=== PATIENT | female | born 1985 | race Caucasian/White ===

== ENCOUNTER → 2018-10-08 16:45 | Outpatient (CLI) | payer OTHER, SELFPAY ==
[2016-06-28 07:12] VITALS: BMI 26.6
[2018-10-17 22:39] LABS: HPV HC, High Risk Negative (Negative)
[2018-10-17 22:40] LABS: HPV Reflexed? YES, CHARGE PATIENT
== END ==
PROVIDERS: Visit Provider Obstetrics & Gynecology
DX: Z12.4 Encounter for screening for malignant neoplasm of cervix (principal)
CPT/HCPCS: 87624; 88175; G0145

== ENCOUNTER → 2018-12-09 09:16 | Outpatient (CLI) | payer OTHER, SELFPAY ==
[2018-12-09 09:12] VITALS: BMI 26.6
--- NOTE | 2018-12-09 09:18 | RAD_ITS ---
STUDY: X-RAY - PELVIS AND LEFT HIP REASON FOR EXAM: Left hip pain, no specific injury. TECHNIQUE: 2 views of the pelvis and hip. COMPARISON: None. FINDINGS: Normal visualized soft tissue structures. Normal bilateral iliac wings, sacroiliac joints and visualized sacrum. Normal bilateral superior and inferior pubic rami. Normal pubic symphysis. Normal bilateral ischial tuberosities. Normal visualized femoral head. Normal acetabulum. Normal hip joint. RAD/HIP, UNI W/ Pelvis 2-3 Views IMPRESSION: Normal x-ray examination of the pelvis and left hip. Electronically Signed: Jorge Fuentes MD at 15:14 EDT Tel , Service support ,
== END ==
PROVIDERS: Referring Provider Orthopaedic Surgery; Visit Provider Orthopaedic Surgery
DX: M25.552 Pain in left hip (principal)
CPT/HCPCS: 73502

== ENCOUNTER → 2018-12-09 09:18 | Outpatient (CLI) | payer OTHER, SELFPAY ==
[2018-12-09 09:12] VITALS: BMI 26.6
--- NOTE | 2018-12-09 09:20 | RAD_ITS ---
STUDY: X-RAY - LUMBAR SPINE REASON FOR EXAM: Female, 33 years old. Chronic low back pain. TECHNIQUE: 3 view(s) of the lumbar spine were obtained. COMPARISON: None FINDINGS: Normal lumbar lordosis. There is no substantial scoliosis. There is 7 mm of anterolisthesis of L5 on S1 from facet degeneration. There is a limbus vertebra of L2, a normal variant. Normal disc space heights. The soft tissue structures are unremarkable. RAD/Lumbar Spine 2 or 3 Views IMPRESSION: Anterolisthesis of L5 on S1 with no other significant finding. Electronically Signed: Zeferino Harrison MD at 17:37 EDT , Service support ,
== END ==
PROVIDERS: Referring Provider Orthopaedic Surgery; Visit Provider Orthopaedic Surgery
DX: M54.5 Low back pain (principal); G89.29 Other chronic pain
CPT/HCPCS: 72100; 72110; 73502

== ENCOUNTER → 2018-12-09 09:56 | Outpatient (CLI) | payer OTHER, SELFPAY ==
[2018-12-09 09:12] VITALS: BMI 26.6
--- NOTE | 2018-12-09 09:57 | RAD_ITS ---
STUDY: X-RAY - LUMBAR SPINE REASON FOR EXAM: Female, 33 years old. Low back pain. TECHNIQUE: 4 view(s) of the lumbar spine including lateral flexion and extension views were obtained. COMPARISON: None FINDINGS: Normal lumbar lordosis. There is no substantial scoliosis. There is 7 mm of anterolisthesis of L5 on S1 which slightly reduces on extension. There is no abnormal motion. There is a lumbar spine vertebra of L2, a normal variant. Normal disc space heights. The soft tissue structures are unremarkable. RAD/L/S Spine Min 4 Views IMPRESSION: 7 mm of anterolisthesis of L5 on S1 which reduces slightly on extension. No abnormal motion. No other malady. Electronically Signed: Zeferino Harrison MD at 18:00 EDT , Service support ,
== END ==
PROVIDERS: Referring Provider Orthopaedic Surgery; Visit Provider Orthopaedic Surgery
DX: M54.5 Low back pain (principal)
CPT/HCPCS: 72110

== ENCOUNTER 2019-01-20 09:00 | Outpatient (RCR) | payer OTHER, SELFPAY ==
[2018-12-09 09:12] VITALS: BMI 26.6
--- NOTE | 2018-12-17 15:53 | HP.PTEVAL ---
Patient's Visit Information BRAXTON OKEEFE is a 33 year old F referred to Physical Therapy by Tamela Tsang DO with a diagnosis of L hip KINGS/Labral tear/ L LE Radiculopathy and spondyloliteses. Date of Evaluation: 12/16/18 Physical Therapist: KINJAL Burden - Visit Plan Frequency: 1-2x /Week Duration: 6 Weeks Plan: 2X/ week for 6 weeks for Core stability, stretching (HS, gastroc, hip flexor), hip strengthening (especially L hip abd, flex and ext),. Kaylyn small sb to the L.... - Subjective Findings: Pt reports that her back started last year and pain down the leg and into groin and hip started to hurt in JUN. Periods of rest did not make it better. The up and down on the bike would hurt her hip. Running would hurt for the last year. L hip hurts into the groin and to stand and piviot and to take a long stride would hurt joanne with running. If aggrevated it would hurt all day. SHe is thinking most things come from my back except the hip. X-ray shpwed spondylolithesis and not terrible. SHe was having different days when her hip would go numb. She has an EMG next week. She has a syrinx in her back and she wants to get that in the MRI to see what part of the spine and hip it was in. She has no N & T now and it was just 3 days. She has a spondylolithes but does not know when that happened. - Pain back pain Pain Intensity (Out of 10): 0 Pain Intensity Range: 3 Comment: Low L. L hip pain Pain Intensity (Out of 10): 0 Pain Intensity Range: 5 - Objective Gait: Normal gait pattern. Trunk AROM: Flexion 50%, Ext 50%, SB L (slight pain) and 75%. LE MMT: L hip flex 4-/5, R 4+/5, L hip abd 4-/5 and R hip abd 4/5, B knee flex 4+/5, B knee ext 4+/5, B hip ext 4/5, Full ROM Bridge, able to heel and toe walk. Flexibility: Tight HS, gastroc, and hip flexors ( R is worse than the L). Pain with palpation at L4-L5 on the L side. Prone Press ups X 10..... no pain in back or leg. Tightness in Lumbar trunk muscles. -SLR or SLUMP test B. +FADIR test of the L for pain - Goals Goal 1:: I HEP Goal Time Frame: 4-6 Weeks Goal 2:: Increase L hip strength to be 4+/5 hip abd, ext, flex Goal Time Frame: 4-6 Weeks Goal 3:: Decrease pain by 50% in the hip L especially with transitions Goal Time Frame: 4-6 Weeks Goal 4:: Increase flexibility of the HS B ( increase trunk flexion to 75% normal ROM) Goal Time Frame: 4-6 Weeks - Rehabilitation Potential Rehabilitation Potential: Good - Anticipated Interventions Patient/Client Instruction: Educate patient on: Condition, Plan of Care For the Purpose of:: To decrease pain, To increase ROM, To improve nutrient delivery to tissue, To improve muscle performance and motor function, To increase tolerance to activity/condition/position, To improve ability of physical actions for home/community/work/leisure, To improve gait and locomotor functions, To improve health of tissue, To increase flexibility/ROM Therapeutic Exercise to Include: Strength training, Postural training, Flexibilty training, Passive ROM, Active ROM, Dynamic Lumbar Stabilization, Scapular Strength/Stabilization For the Purpose of:: To decrease pain, To improve muscle performance and motor function, To increase tolerance to activity/condition/position, To improve performance and independence with ADL's, To improve ability of physical actions for home/community/work/leisure, To increase flexibility/ROM Thank you for the opportunity to evaluate your patient. For Medicare and Medicare HMO plans, please review the plan of care and approve it. It will need to be FAXED BACK to us at [phone] for Medicare purposes. For Medicare only, by signing this I certify the plan of care. Please let me know if there are questions or concerns regarding this plan of care. Physician Signature: Date:
--- NOTE | 2019-04-07 13:43 | HP.PTDCNRP_ITS ---
HP - Discharge Summary (1) - Patient Information BRAXTON OKEEFE was seen in my office for initial evaluation on 12/16/18. The following Plan of Care was established for this patient: Initial Frequency: 1-2x /Week Initial Duration: 6 Weeks - Anticipated Interventions Patient/Client Instruction: Educate patient on: Condition, Plan of Care For the Purpose of:: To decrease pain, To increase ROM, To improve nutrient d elivery to tissue, To improve muscle performance and motor function, To increase tolerance to activity/condition/position, To improve ability of physical actions for home/community/work/leisure, To improve gait and locomotor functions, To improve health of tissue, To increase flexibility/ROM Therapeutic Exercise to Include: Strength training, Postural training, Flexibilty training, Passive ROM, Active ROM, Dynamic Lumbar Stabilization, Scapular Strength/Stabilization For the Purpose of:: To decrease pain, To improve muscle performance and motor function, To increase tolerance to activity/condition/position, To improve performance and independence with ADL's, To improve ability of physical actions for home/community/work/leisure, To increase flexibility/ROM This patient was last seen in our office 01/20/19. Pertinent comments regarding their Physical therapy will appear below: DC PT. At the time of last appointment, pt was only 5% better and was going back to MD for physician reassessment. DC PT At this point I will be discontinuing this patient from physical therapy. I would be happy to see this patient again in the future if found appropriate by the physician. Thank you! Radha Hodges, KINJAL
== END 2019-01-20 19:00 | disposition home or self-care (01) ==
LOC: PT 09:00
PROVIDERS: Family Provider Family Medicine; PCP Family Medicine; Referring Provider Orthopaedic Surgery; Visit Provider Orthopaedic Surgery
DX: M24.851 Other specific joint derangements of right hip, not elsewhere classified (principal); M43.10 Spondylolisthesis, site unspecified; M54.10 Radiculopathy, site unspecified
CPT/HCPCS: 97110; 97161; 97530

== ENCOUNTER → 2019-02-23 10:05 | Outpatient (CLI) | payer OTHER, SELFPAY ==
[2019-02-03 09:38] VITALS: BMI 26.6
--- NOTE | 2019-02-23 10:15 | RAD_ITS ---
Under fluoroscopic control and following appropriate antiseptic preparation and local anesthesia,22 spinal needle was used to inject the iodine contrast within the joint space this was followed by immediate injection of 20 cc of saline mixed with the 0.1ml gadolinium which was prepared in the pharmacy. The patient tolerated the procedure well and transferred to MRI to complete the MRI study of the left hip. Electronically Signed: Sapna Disla, at 15:25 EDT Tel , Service support , RAD/Arthrogram Hip w/ MRI
--- NOTE | 2019-02-23 11:28 | MRI_ITS ---
STUDY: MR LEFT HIP ARTHROGRAPHY REASON FOR EXAM: Left hip pain and catching since last May. TECHNIQUE: Standardized fat and water weighted pulse sequences were obtained in all 3 orthogonal planes after intra-articular instillation of dilute Dotarem. COMPARISON: Radiographs 12/09/2018. FINDINGS: Normal hip joint without articular joint space narrowing. Normal acetabulum. There is a tear at the base of the left superior labrum (T1 coronal images 9-13) and anterosuperior labrum (MITUL image 10). Normal femoral head. Normal femoral neck and intratrochanteric region. Normal gluteus minimus, medius and iliopsoas tendons and distal insertions. There is no trochanteric, iliopsoas or iliopectineal bursitis. Normal visualized superior and inferior pubic rami. Normal ischial tuberosity. Normal origin of the hamstring tendons. MRI/Lower Ext/Jt Only/W Contrast IMPRESSION: Left labral tear. No demonstrated iliopsoas bursitis. Electronically Signed: Jorge Fuentes MD at 13:21 EDT Tel , Service support ,
== END ==
PROVIDERS: Family Provider Family Medicine; PCP Family Medicine; Referring Provider Orthopaedic Surgery; Visit Provider Orthopaedic Surgery
DX: M25.552 Pain in left hip (principal); M70.72 Other bursitis of hip, left hip
CPT/HCPCS: 27093; 73722; 77002; A9575; Q9967

== ENCOUNTER 2019-03-20 08:57 | Day surgery (SDC) | payer OTHER, SELFPAY ==
[2019-02-03 09:38] VITALS: BMI 26.6
[2019-03-17 12:27] VITALS: BMI 26.6
--- NOTE | 2019-03-17 12:41 | HP_ITS ---
I have re-examined the patient. There are no clinical changes since date of exam. Intake Vital Signs 03/17/19 Body Mass Index (BMI) 26.6 Intake Visit Reasons: hip Chief Complaint: sinus Allergies sulfamethoxazole [From Septra] Allergy (Verified 03/13/19 09:32) Rash trimethoprim [From Septra] Allergy (Verified 03/13/19 09:32) Rash PFSH Medical History (Updated 09/09/18 @ 17:01 by MI Waller) Severe headache (Acute) Surgical History (Updated 09/09/18 @ 16:48 by Marlene Jacques) History of elbow surgery (Acute) Family History (Updated 09/09/18 @ 16:49 by Marlnee Jacques) Mother Hypertension Social History (Updated 03/17/19 @ 13:35 by Tamela Tsang DO) Smoking Status: Never smoker alcohol intake: current alcohol intake frequency: a few times a week Alcohol type: beer, wine HPI hip: Surgical H&P: Yes Details: Parts of this documentation were recorded by a scribe, this documentation accurately reflects the service provided and the decisions made by me, Tamela Tsang DO 03/17/19 1226. BRAXTON OKEEFE is a 33 year old F here today for F/U after left hip arthrogram was completed. Patient continues to have left sided groin pain that radiates into her anterior mid thigh. Denies any changes in medications or allergies. Denies numbness, tingling or other associated symptoms. ROS Const Reports system reviewed and no additional complaints, except as docu Eyes Reports system reviewed and no additional complaints, except as docu ENT Reports system reviewed and no additional complaints, except as docu Card Reports system reviewed and no additional complaints, except as docu Resp Reports system reviewed and no additional complaints, except as docu GI Reports system reviewed and no additional complaints, except as docu Musc Reports as per HPI Skin/Breast Reports system reviewed and no additional complaints, except as docu Neuro Yes system reviewed and no additional complaints, except as docu Psych Reports system reviewed and no additional complaints, except as docu Endo Reports system reviewed and no additional complaints, except as docu Mark/Lymph Reports system reviewed and no additional complaints, except as docu Aller/Immun Reports system reviewed and no additional complaints, except as docu Assessment & Plan Problems 1. Hip pain, left M25.552 Plan Reviewed the pre-operative plans with the patient. Risks and benefits of the procedure were fully explained, including but not limited to infection, neurovascular injury, continued pain, arthritis, stiffness, need for further surgery, re-injury, DVT, PE, general risks of anesthesia, and loss of limb or life. The patient understands all the risks and does wish to proceed with written consent. Follow up post op or sooner if pain, swelling, numbness or associated symptoms, or concerns develop. All questions answered. Patient in agreement of plan. Coding Level of Care Code Off vis,est,level 3 Diagnoses Hip pain, left M25.552 03/17/19 9516 <Electronically signed by Tamela barney DO> Date _ Tamela Tsang DO
[2019-03-20 09:17] VITALS: BP 120/78; PULSE 59; RESP 16; TEMP 36.3; O2SAT 100; BMI 23.6
[2019-03-20 09:26] LABS: Internal QC Validated? YES +Cl - CLEAR BKGD; Pregnancy, Urine Negative Negative
--- NOTE | 2019-03-20 10:30 | RAD_ITS ---
STUDY: X-RAY - PELVIS AND LEFT HIP REASON FOR EXAM: Intra-articular and iliopsoas injection. TECHNIQUE: 2 fluoroscopic images of the pelvis and hip. COMPARISON: Radiographs 12/09/2018. FINDINGS: There is contrast adjacent to the iliopsoas tendon insertion on image #1. There is contrast at the lateral aspect of the left hip joint with mild extravasation on image #2. 12 seconds of fluoroscopy time was used. Electronically Signed: Jorge Fuentes MD at 11:33 EDT Tel , Service support , RAD/Hip 1 view with Pelvis
[2019-03-20] MEDS: Cefazolin 2 GM in 0.9% Normal Saline 100 ML IV (10:43)
[2019-03-20] MEDS: Ropivacaine 0.5% 30 ML Vial (11:00)
[2019-03-20] MEDS: Betamethasone/Betamethasone 30 MG/5 ML Vial (11:00)
--- NOTE | 2019-03-20 11:06 | DCINST_ITS ---
Discharge Diet: No Restrictions - wbat left leg, do not submerge left leg in water for 24 hours Discharge Activity: May Not Drive May shower in (days): 1 Ice area for (Minutes): 20 - Every hour while awake. Weight Bearing Status: Weight bearing as tolerated Keep extremity elevated above heart level: Operative Extremity Call your doctor if your incision/area has: Continuous Slow Oozing, Sudden Increased Bleeding, Increased Pain/ Swelling, Increased Redness, Foul Smelling Discharge Call your doctor if you observe: Fever of 101 or Higher, Coldness, Increased Pain, Numbness or Tingling, Change in Color, Calf discomfort Allergies/Adverse Reactions: Allergies sulfamethoxazole [From ] Allergy (Verified 03/13/19 09:32) Rash trimethoprim [From ] Allergy (Verified 03/13/19 09:32) Rash Medications to take at Discharge drospirenone 3 mg-ethinyl estradiol 0.02 mg tablet 1 tab PO DAILY 09/09/18 lactobacillus combination no.9 4 billion cell capsule 1 cap PO DAILY cap 09/09/18 Acetaminophen/Codeine #3 [Tylenol #3 Tablet] 1 - 2 tablet PO Q6H PRN PRN #10 tablet 03/20/19 The following prescriptions were given: Acetaminophen/Codeine #3 [Tylenol #3 Tablet] 1 - 2 tablet PO Q6H PRN PRN #10 tablet PRN Reason: Pain Transmission Status: Sent to [facility] Primary Care Physician: Danyel Galan MD [Primary Care Provider] - Test Results: Test results from this visit will be discussed in further detail at your follow- up appointment, if applicable. Please Follow Up With: Tamela Tsang, - [phone]
--- NOTE | 2019-03-20 11:06 | OP.PCM_ITS ---
Report of Operation Date of Procedure: 03/20/19 Pre-Operative Diagnosis: left hip internal snapping hip/ intraarticular labral tear Post-Operative Diagnosis: same Surgery/Procedure Performed:: left iliopsoas injection, left intraarticular hip injection hydrocrane operator: Paramjit Proctor Type of Anesthesia:: MAC Anesthesiologist: Jose Mayorga Estimated Blood Loss (mL): none Fluids Replaced: 200cc lr Description of Procedure: Preop note Patient is a 33-year-old female with known left hip pain seen MRI confirmed labral tear and she also has internal snapping hip. Risk benefits alternatives surgery discussed with patient. Patient like to proceed with an injection of the iliopsoas and an intra-articular hip injection. Risks include but not limited to blood loss, blood clot, infection, neurovascular, failure procedure, loss of life and loss of limb. Patient aware would like proceed with left iliopsoas and left hip injection. Operative note Patient seen and examined preop holding her. Left hip was marked. Patient brought the operating room placed supine the operating table standing, anesthesia was administered. We used fluoroscopy to to ascertain the level of the iliopsoas injection timeout was performed. We then used an 18-gauge spinal needle down the level of the lesser used diet to make insurance and with fluoroscopy that we were in the iliopsoas injection which we were then injected 4 cc of bupivacaine with 1 cc Celestone into the iliopsoas we then placed a Band-Aid over the incision site we then moved to the intra-articular hip injection we injected the hip with diet ensure that we are in the hip joint which we were. We then injected the hip joint with 8 cc of ropivacaine and 2 cc Celestone. Band-Aids were applied to the incision of the injection site. Patient tired procedure well no comp case transferred recovery room in stable condition Postoperative Weight-bear as tolerated Follow-up in 2 weeks Tylenol No. 3 given to patient Hospital pharmacy This note was generated with [employer] software. It may contain incorrect words, spelling, and punctuation that were not noted in checking the note before signing.
[2019-03-20 11:07] VITALS: BP 112/80; BP 120/78; PULSE 61; RESP 16; TEMP 36.2; O2SAT 100
[2019-03-20 11:12] VITALS: BP 120/78; BP 90/77; PULSE 62; RESP 16; O2SAT 98
[2019-03-20 11:17] VITALS: BP 111/80; BP 120/78; PULSE 58; RESP 16; O2SAT 95
[2019-03-20 11:23] VITALS: BP 118/74; BP 120/78; PULSE 56; RESP 16; TEMP 36.4; O2SAT 100
[2019-03-20 12:07] VITALS: BP 120/78
== END 2019-03-20 12:10 | disposition home or self-care (01) ==
LOC: SDC 08:58 → AC 08:58
PROVIDERS: Anesthesiology; Family Provider Family Medicine; PCP Family Medicine; Referring Provider Orthopaedic Surgery; Visit Provider Orthopaedic Surgery
PROC: 3E0U3GC Introduction of Other Therapeutic Substance into Joints, Percutaneous Approach (ICD-10-PCS; CPT 20610; principal; 2019-03-20 10:25)
DX: M25.552 Pain in left hip (principal); M24.852 Other specific joint derangements of left hip, not elsewhere classified; S73.102A Unspecified sprain of left hip, initial encounter; X58.XXXA Exposure to other specified factors, initial encounter; Y93.9 Activity, unspecified; Y92.9 Unspecified place or not applicable; Y99.9 Unspecified external cause status; Z88.2 Allergy status to sulfonamides; Z88.1 Allergy status to other antibiotic agents
CPT/HCPCS: 20550; 20610; 77002; 73501; 76000; 81025; J7120; J0702; J2405

== ENCOUNTER 2019-08-14 08:48 | Day surgery (SDC) | payer OTHER, SELFPAY ==
[2019-07-16 10:35] VITALS: BMI 23.6
--- NOTE | 2019-07-16 11:02 | HP_ITS ---
I have re-examined the patient. There are no clinical changes since date of exam. Intake Vital Signs 07/16/19 Body Mass Index (BMI) 23.6 Intake Visit Reasons: Hip pain Chief Complaint: left hip Is patient in pain?: Yes Allergies sulfamethoxazole [From ] Allergy (Verified 03/13/19 09:32) Rash trimethoprim [From Mayra] Allergy (Verified 03/13/19 09:32) Rash Medications drospirenone 3 mg-ethinyl estradiol 0.02 mg tablet 1 tab PO DAILY 09/09/18 [History Confirmed 07/16/19] lactobacillus combination no.9 4 billion cell capsule 1 cap PO DAILY cap 09/09/18 [History Confirmed 07/16/19] PFSH Medical History (Updated 03/20/19 @ 11:10 by Tamela Tsang DO) Severe headache (Acute) Surgical History (Updated 03/20/19 @ 11:10 by Tamela Tsang DO) History of elbow surgery (Acute) Family History (Updated 09/09/18 @ 16:49 by Marlene Jacques) Mother Hypertension Social History (Updated 07/16/19 @ 12:37 by Tamela Tsang DO) Smoking Status: Never smoker alcohol intake: current alcohol intake frequency: a few times a week Alcohol type: beer, wine HPI Hip pain: Surgical H&P: Yes Details: Parts of this documentation were recorded by a scribe, this documentation accurately reflects the service provided and the decisions made by me, Tamela Tsang DO 07/16/19 1034. BRAXTON OKEEFE is a 34 year old F here today for F/U on hip pain. Patient had left iliopsoas injection, left intraarticular hip injection on 03/20/19 which she states was effective for about 2 months. She states she has not had any changes in her pain and she wishes to have the injections completed again. She is here to sign surgery consent.Patient continues to have left sided groin pain that radiates into her anterior mid thigh. ROS Musc Reports joint pain, Denies joint swelling, Denies numbness, Denies radiating pain into limb, Reports stiffness, Denies tingling Skin/Breast Denies redness, Denies lesions, Denies itching, Denies rash Neuro No numbness, No tingling Ortho Exam Left Hip Skin/Wound: No soft tissue swelling Hip: Absent soft tissue swelling HIP: neg hoffmans Positive pain with internal rotation and flexion as well as pain with straight leg extension over the iliopsoas No rales rhonchi wheezing, no abdominal pain, no audible bruits Assessment & Plan 1. Pain of left hip joint M25.552 Plan Since patient had relief with her previous left hip injection she wishes to proceed with another injection. Reviewed the pre-operative plans with the patient. Risks and benefits of the procedure were fully explained, including but not limited to infection, neurovascular injury, continued pain, arthritis, stiffness, need for further surgery, re-injury, DVT, PE, general risks of anesthesia, and loss of limb or life. The patient understands all the risks and does wish to proceed with written consent. Follow up post op or sooner if pain, swelling, numbness or associated symptoms, or concerns develop. All questions answered. Patient in agreement of plan. Coding Level of Care Code Off vis,est,level 4 Diagnoses Pain of left hip joint M25.552 ??Laterality: left 07/16/19 1237 <Electronically signed by Tamela barney DO> Date _ Tamela Tsang DO
[2019-08-14 09:32] LABS: Internal QC Validated? YES +Cl - CLEAR BKGD; Pregnancy, Urine Negative Negative
[2019-08-14 09:39] VITALS: BP 113/70; PULSE 67; RESP 15; TEMP 36.3; O2SAT 100; BMI 23.8
[2019-08-14] MEDS: Lactated Ringers 1,000 ML 100 ML IV (10:03)
--- NOTE | 2019-08-14 10:22 | PCM.DC.ORTHO ---
Discharge Diet: No Restrictions Discharge Activity: May Not Drive May shower in (days): 1 Ice area for (Minutes): 20 - Every hour while awake. Weight Bearing Status: Weight bearing as tolerated Keep extremity elevated above heart level: Operative Extremity Call your doctor if your incision/area has: Continuous Slow Oozing, Sudden Increased Bleeding, Increased Pain/ Swelling, Increased Redness, Foul Smelling Discharge Call your doctor if you observe: Fever of 101 or Higher, Coldness, Increased Pain, Numbness or Tingling, Change in Color, Calf discomfort Allergies/Adverse Reactions: Allergies sulfamethoxazole [From Mayra] Allergy (Verified 08/14/19 09:38) Rash trimethoprim [From Mayra] Allergy (Verified 08/14/19 09:38) Rash Medications to take at Discharge drospirenone 3 mg-ethinyl estradiol 0.02 mg tablet 1 tab PO DAILY 09/09/18 lactobacillus combination no.9 4 billion cell capsule 1 cap PO DAILY cap 09/09/18 Primary Care Physician: Rhys Schuler MD [Primary Care Provider] - Test Results: Test results from this visit will be discussed in further detail at your follow-up appointment, if applicable. Please Follow Up With: Tamela Tsang, DO - [phone]
--- NOTE | 2019-08-14 10:22 | PCM.OPRPT ---
Report of Operation Date of Procedure: 08/14/19 Pre-Operative Diagnosis: LEFT hip ILiopsoas tendinitis/snapping hip, labral tear Post-Operative Diagnosis: same Surgery/Procedure Performed:: left intraarticular injection/iliopsoas tendon injection corporate scheduler: Paramjit Proctor Type of Anesthesia:: MAC Anesthesiologist: Jose Mayorga Fluids Replaced: 300cc lr Description of Procedure: Preop note Patient is a 34-year-old female with known left hip pain seen MRI confirmed labral tear and she also has internal snapping hip. Risk benefits alternatives surgery discussed with patient. Patient like to proceed with an injection of the iliopsoas and an intra-articular hip injection. Risks include but not limited to blood loss, blood clot, infection, neurovascular, failure procedure, loss of life and loss of limb. Discussed avascular necrosis risk as well as weakening of the tendon due to the second injection. Patient is not ready to have surgery at this point but does know that this is an option and this will be the last injection we do before she has a surgical consult. Patient aware would like proceed with left iliopsoas and left hip injection. Operative note Patient seen and examined preop holding her. Left hip was marked. Patient brought the operating room placed supine the operating table standing, anesthesia was administered. We used fluoroscopy to to ascertain the level of the iliopsoas injection timeout was performed. We then used an 18-gauge spinal needle down the level of the lesser used diet to make insurance and with fluoroscopy that we were in the iliopsoas injection which we were then injected 4 cc of bupivacaine with 1 cc Celestone into the iliopsoas we then placed a Band-Aid over the incision site we then moved to the intra-articular hip injection we injected the hip with diet ensure that we are in the hip joint which we were. We then injected the hip joint with 8 cc of ropivacaine and 2 cc Celestone. Band-Aids were applied to the incision of the injection site. Patient tired procedure well no comp case transferred recovery room in stable condition Postoperative Weight-bear as tolerated Follow-up in 2 weeks
--- NOTE | 2019-08-14 10:41 | RAD_ITS ---
PROCEDURE: Left hip intra-articular injection. DATE OF EXAMINATION: August 14, 2019. INDICATION: Female, 34 years old. Chronic appearing. FLUOROSCOPY TIME (if supplied): (19 seconds) minutes/seconds. Intraoperative imaging provided for left hip injection. Contrast is seen within the left hip joint. RAD/Fluoro Guided Needle Placement IMPRESSION: Intraoperative images provided for left hip injection. Electronically Signed: Hunter Tierney, at 13:07 EST , Service support ,
[2019-08-14] MEDS: Cefazolin 2 GM in 0.9% Normal Saline 100 ML IV (10:45)
[2019-08-14] MEDS: Betamethasone/Betamethasone 30 MG/5 ML Vial (10:58)
[2019-08-14] MEDS: Bupivacaine Mpf 0.5% 30 ML VIAL (10:59)
[2019-08-14 11:18] VITALS: BP 111/61; BP 113/70; PULSE 64; RESP 16; TEMP 36.8; O2SAT 100
[2019-08-14 11:20] VITALS: BP 105/61; BP 113/70; PULSE 62; RESP 16; O2SAT 100
[2019-08-14 11:25] VITALS: BP 108/75; BP 113/70; PULSE 66; RESP 16; O2SAT 100
[2019-08-14 11:31] VITALS: BP 113/66; BP 113/70; PULSE 60; RESP 16; TEMP 36.2; O2SAT 100
[2019-08-14 11:53] VITALS: BP 113/70
== END 2019-08-14 12:13 | disposition home or self-care (01) ==
LOC: SDC 08:48 → AC 09:30
PROVIDERS: Anesthesiology; Family Provider Family Medicine; PCP Family Medicine; Referring Provider Orthopaedic Surgery; Visit Provider Orthopaedic Surgery
PROC: 3E0U3GC Introduction of Other Therapeutic Substance into Joints, Percutaneous Approach (ICD-10-PCS; CPT 20610; principal; 2019-08-14 10:25)
DX: M76.12 Psoas tendinitis, left hip (principal); M24.852 Other specific joint derangements of left hip, not elsewhere classified; S73.102A Unspecified sprain of left hip, initial encounter; X58.XXXA Exposure to other specified factors, initial encounter; Y93.9 Activity, unspecified; Y92.9 Unspecified place or not applicable; Y99.9 Unspecified external cause status; Z88.2 Allergy status to sulfonamides; Z88.1 Allergy status to other antibiotic agents
CPT/HCPCS: 20550; 20610; 76000; 77002; 81025; J7120; J0702

== ENCOUNTER → 2019-10-15 | Outpatient (CLI) | payer OTHER, SELFPAY ==
[2019-10-21 12:08] LABS: Age Gdln ACOG Testing 30-65 (.)
[2019-10-21 13:59] LABS: HPV APTIMA, High Risk Negative (Negative)
[2019-10-21 14:00] LABS: HPV Reflexed? YES, CHARGE PATIENT
== END | disposition home or self-care (01) ==
LOC: LABSPEC 14:32
PROVIDERS: PCP Family Medicine; Visit Provider Obstetrics & Gynecology
DX: Z12.4 Encounter for screening for malignant neoplasm of cervix (principal)
CPT/HCPCS: 87624; 88175; G0145

== ENCOUNTER → 2020-02-18 13:45 | Outpatient (CLI) | payer OTHER, SELFPAY ==
[2020-02-18 13:41] VITALS: BMI 23.8
--- NOTE | 2020-02-18 13:45 | RAD_ITS ---
STUDY: X-RAY - LEFT SHOULDER REASON FOR EXAM: Female, 34 years old. CHRONIC PAIN TECHNIQUE: 3 view(s) of the shoulder. COMPARISON: None. FINDINGS: Normal glenohumeral articulation. Normal acromioclavicular joint. Normal acromion. Normal humeral head and visualized proximal humerus. The soft tissue structures are unremarkable. Normal visualized pulmonary apex. RAD/Shoulder min 2 Views IMPRESSION: Normal x-ray examination of the shoulder. Electronically Signed: Hunter Tierney, at 14:59 EDT , Service support ,
== END ==
PROVIDERS: PCP Family Medicine; Referring Provider Physician Assistant; Visit Provider Physician Assistant
DX: M25.512 Pain in left shoulder (principal)
CPT/HCPCS: 73030

== ENCOUNTER → 2022-05-14 | Outpatient (CLI) | payer OTHER, SELFPAY ==
--- NOTE | 2022-05-14 17:19 | RAD_ITS ---
STUDY: X-RAY - PELVIS AND BILATERAL HIPS REASON FOR EXAM: Female, 36 years old. HIPS- PAIN IN RIGHT HIP TECHNIQUE: AP view of the pelvis.? 2 views of the right hip, and 2 views of the left hip were obtained. COMPARISON: None. FINDINGS: There is a non-specific bowel gas pattern. Normal visualized soft tissue structures. Normal bilateral iliac wings, sacroiliac joints and visualized sacrum. Normal bilateral superior and inferior pubic rami. Normal pubic symphysis. Normal bilateral ischial tuberosities. Normal visualized right femoral head. Normal right acetabulum. Normal right hip joint. Normal visualized left femoral head. Normal left acetabulum. Normal left hip joint. RAD/Hips B/L min 2 views w/ Pelvis IMPRESSION: Normal x-ray examination of the pelvis and bilateral hips. Electronically Signed: Akhil Riley DO at 3:05 EDT ,
== END | disposition home or self-care (01) ==
LOC: MTRAD 17:18
PROVIDERS: PCP Family Medicine; Referring Provider Family Medicine; Visit Provider Family Medicine
DX: M25.551 Pain in right hip (principal)
CPT/HCPCS: 73521

== ENCOUNTER 2022-06-13 16:00 | Outpatient (RCR) | payer OTHER, SELFPAY ==
--- NOTE | 2022-05-23 11:44 | HP.PTEVAL_ITS ---
Patient's Visit Information BRAXTON OKEEFE is a 36 year old F referred to Physical Therapy by Dr. Rhys Schuler MD with a diagnosis of hip pain. Date of Evaluation: 05/23/22 Physical Therapist: KINJAL Burden - Visit Plan Frequency: 2x /Week Duration: 6 Weeks Plan: 2X/ week for 6 weeks for B hip AROM, stretching (within pain tolerance), hip strength, core strength, balance and proprioception with HEP and modalities if needed. - Subjective This all started on the R a few months ago. She was running at the begining of the summer and this started late March. Pt does not know what happened but her R hip feels like how her L hip felt prior to injections (confirmed labral tear on MRI on the L hip... has reached max injections on the L hip). Hurts to put on socks and shoes and can't run, hurts to walk, pops. Dr thinks that it is an impingement and radiates pain down the front into the groin. Hurts to lay on back. L is confirmed torn\ Maxed out the injections. New one is the R one. Wants MRI and injections in the R while getting the L fixed. They do it at the [facility]. Pt has to lift her R leg to get out of the car. The injections helped the L for awhile. No back pain. No weakness in the leg. Meloxicam but not doing anything. She still walks and pushes through the pain. If she does too much she pays for it for days afterwards. - Pain R hip pain (new) Pain Intensity (Out of 10): 2 Pain Intensity Range: 4 Comment: with walking L hip pain (old) Pain Intensity (Out of 10): 0 Pain Intensity Range: 3 Comment: with activity - Objective Gait: Walks with a normal gait pattern with decrease stride length. R hip abd 10.4# R hip ext 14.8#. L hip abd 15.5# L hip ext 15.6#. R hip flex (able to get to approx 70 degrees and starts to have pain passivly) L hip able to get full ROM but pain at end range. Pt has increase pain with R hip flexion PROM and has increase pain when lifting her R leg onto the mat table. Pt has increase pain with hip flexion and ER..... can't move too far into hip flex and then pain starts in the groin. Increase pain with R SLR in the groin. Good hip flexion flexibility with little pain. No pain with bridges, pain with SLR, no pain with hip abd, squat to chair she has slight pain but tolerable - Balance/Special Test Scores Lower Extremity Functional Score: 48 - Goals Goal 1:: I HEP Goal Time Frame: 2-4 Weeks Goal 2:: Increase hip strength (at the time of the eval R hip abd 10.4# R hip ext 14.8#. L hip abd 15.5# L hip ext 15.6#) Goal Time Frame: 2-4 Weeks Goal 3:: Be able to lift her R leg without using her arms to get her leg in the car Goal Time Frame: 2-4 Weeks - Rehabilitation Potential Rehabilitation Potential: Fair - Anticipated Interventions Patient/Client Instruction: Educate patient on: Condition, Plan of Care For the Purpose of:: To decrease pain, To increase ROM, To improve nutrient delivery to tissue, To improve muscle performance and motor function, To improve ability to perform ADL's, To increase tolerance to activity/condition/position, To improve performance and independence with ADL's, To improve ability of phys ical actions for home/community/work/leisure, To improve gait and locomotor functions, To improve health of tissue, To increase flexibility/ROM Therapeutic Exercise to Include: Strength training, Endurance training, Balance training, Flexibilty training, Gait and locomotor training, Neuromotor development, Passive ROM, Active ROM, Dynamic Lumbar Stabilization For the Purpose of:: To decrease pain, To increase ROM, To improve nutrient delivery to tissue, To increase oxygenation perfusion, To improve muscle performance and motor function, To improve ability to perform ADL's, To increase tolerance to activity/condition/position, To decrease level of supervision to perform tasks, To improve ability of physical actions for home/community/work/le isure, To improve gait and locomotor functions, To improve health of tissue, To decrease soft tissue restriction, To increase flexibility/ROM Manual Therapy Techniques to Include: Passive ROM For the Purpose of:: To increase ROM TENS: Yes IF ES: Yes Cryotherapy (ice pack, ice massage): Yes Thermo therapy (hot pack): Yes For the Purpose of:: To decrease pain, To increase ROM, To improve nutrient delivery to tissue Thank you for the opportunity to evaluate your patient. For Medicare and Medicare HMO plans, please review the plan of care and approve it. It will need to be FAXED BACK to us at [phone] for Medicare purposes. For Medicare only, by signing this I certify the plan of care. Please let me know if there are questions or concerns regarding this plan of care. Physician Sign ature: Date:
--- NOTE | 2022-06-13 18:27 | HP.PTDCSUM ---
It has been my pleasure to treat BRAXTON OKEEFE referred by Dr. Rhys Schuler MD, with the diagnosis of R hip pain for a total of 7 visit(s). Discharge Date: 06/13/22 Please see the following information for a summary of their discharge status. Subjective: Pt reports that her pain is the same. She is still painful with rotation and pain everyday. R hip pain (new) Pain Intensity (Out of 10): 5 L hip pain (old) Pain Intensity (Out of 10): 4 % Improvement: 0 Objective/Function: Pt has increase pain with any hip rotation and his hip flexion (unable to SLR) due to pain Goal 1:: I HEP Goal 2:: Increase hip strength (at the time of the eval R hip abd 10.4# R hip ext 14.8#. L hip abd 15.5# L hip ext 15.6#) Goal 3:: Be able to lift her R leg without using her arms to get her leg in the car Goal 4:: Decrease R hip pain to 2/10 with walking Plan: DC PT back to Dr for reassessment Discharge Comments: DC PT back to physician If there are questions or concerns regarding this patient's physical therapy, please feel free to call me at [phone]. Thank you for the referral of this patient. Sincerely, Radha Hodges, KINJAL Balance/Gait/Functional tests - Balance/Special Test Scores Lower Extremity Functional Score: 48
== END 2022-06-13 19:00 | disposition home or self-care (01) ==
LOC: PT 16:00
PROVIDERS: PCP Family Medicine; Referring Provider Family Medicine; Visit Provider Family Medicine
DX: M25.559 Pain in unspecified hip (principal)
CPT/HCPCS: 97110; 97161

== ENCOUNTER → 2022-07-23 | Outpatient (CLI) | payer OTHER, SELFPAY ==
--- NOTE | 2022-07-23 10:04 | MRI_ITS ---
EXAM: MR RIGHT LOWER EXTREMITY WITH INTRAVENOUS CONTRAST, HIP CLINICAL INDICATION: pain TECHNIQUE: Multiplanar and multisequence MR images of the right hip with intravenous contrast. This report was created using [employer] report [employer] technology. CONTRAST: intra articular ,, arthrogram solution 10ml COMPARISON: None. FINDINGS: TENDONS: FLEXORS: Unremarkable. Intact. EXTENSORS/HAMSTRING: Unremarkable. Intact. ABDUCTORS: Unremarkable. Intact. ADDUCTORS: Unremarkable. Intact. ROTATORS: Unremarkable. Intact. MUSCLES: Unremarkable. Normal bulk and signal. FLUID: No bursitis. No joint effusion. LABRUM: Irregularity at the anterior labrum is concerning for age-indeterminate anterior labral tearing. No other labral tearing. CARTILAGE: No focal chondral defects. Articular cartilage intact. BONES/JOINTS: Adequate distention of the joint with contrast solution. No bone marrow signal alterations. No significant synovitis or any intra-articular ossific bodies. No femoral neck fracture. No avascular necrosis of the femoral head. No sacral insufficiency fracture. OTHER SOFT TISSUES: Unremarkable. MRI/Lower Ext/Jt Only/W Contrast IMPRESSION: Irregularity at the anterior labrum is concerning for age-indeterminate anterior labral tearing. No other labral tearing. Electronically Signed: William Garsia MD at 3:31 EST ,
--- NOTE | 2022-07-23 10:25 | RAD_ITS ---
NAME: Renetta Bourgeois PROCEDURE: IR Hip Arthrogram Examination ACCESSION NUMBER: [id number] CLINICAL HISTORY AND INDICATION: right hip pain , add to prior right hip order COMPARISON: Bilateral hip radiograph from 05/14/2022. Procedure: The procedure with its potential risks was explained to the patient, all the questions and concerns were answered and written informed consent was obtained. A timeout was observed to confirm identity, procedure and site. Localization of the patient''s right hip was performed under fluoroscopy. The patient''s right hipwas prepped and draped in the usual sterile fashion. Local anesthesia was achieved with subcutaneous injection of 1% lidocaine. Under fluoroscopic guidance, a 22-gauge spinal needle was advanced into the right hip joint, and intra-articular location was confirmed with administration of 4-5 cc of 1:1 diluted normal saline/ISOVUE-300 contrast. Then 10 mL of premixed diluted gadolinium based contrast provided by the in-house pharmacy was injected into the joint space. Intra-articular needle position was confirmed with intermittent fluoroscopy. The patient tolerated the procedure well, with no intermediate complications. The patient was escorted to the MR suite for further imaging in stable condition. RAD/Arthrogram Hip IMPRESSION: Successful right hip arthrogram. Electronically Signed: Andre Hernandez, at 14:51 EST ,
[2022-07-23] MEDS: Lidocaine 2% (5ml sdv) 5 ML VIAL.MPF INFILT (10:40)
[2022-07-23] MEDS: Iopamidol 10 ML in Syringe 1 EACH 600 ML INTRAARTIC (10:40)
[2022-07-23] MEDS: Gadoterate Meglumine Diluted 10 ML, Iopamidol 5 ML, Lidocaine 1% (20 ml mdv) 5 ML, Epin... INTRAARTIC (10:50)
== END | disposition home or self-care (01) ==
LOC: MRI 10:04
PROVIDERS: PCP Family Medicine; Visit Provider Family Medicine
DX: M25.551 Pain in right hip (principal)
CPT/HCPCS: 27093; 73525; 73722; Q9967

== ENCOUNTER → 2022-08-29 | Outpatient (CLI) | payer OTHER, SELFPAY ==
[2022-08-29 12:59] LABS: ALB/GLOB Ratio 1.3 RATIO (0.9-2.4); AST(SGOT) 13 U/L (15-37); Alanine Aminotransfer ALT/SGPT 18 U/L (13-56); Albumin, Serum 3.9 g/dL (3.2-5.0); Alkaline Phosphatase 47 U/L (45-117); Anion Gap 6 (5-15); BUN 14 mg/dL (7-18); BUN/Creat Ratio 21.4 RATIO (10-20); Calcium,Total 8.5 mg/dL (8.5-10.1); Chloride 105 mmol/L (98-107); Creatinine, Serum 0.65 mg/dL (0.55-1.02); EST Glomerular Filtration Rate 108 mL/min (>60); Est Glom Filt Rate - Afr Amer 131 mL/min (>60); Globulin 2.9 g/dL (2.2-4.2); Glucose 79 mg/dL (74-106); Potassium 4.2 mmol/L (3.5-5.1); Protein, Total 6.8 g/dL (6.4-8.2); Sodium Level 140 mmol/L (136-145); T4 Free Direct 0.95 ng/dL (0.76-1.46)
[2022-08-31 08:08] LABS: Thyroid Stim Immunoglob <0.10 IU/L (0.00-0.55)
[2022-08-31 17:04] LABS: Anti-Thyroglobulin AB < 1.0 IU/mL (0.0-0.9); Thyroglobulin, Serum Qt. 97.2 ng/mL (1.5-38.5); Thyroid Peroxidase AB < 9 IU/mL (0-34)
== END | disposition home or self-care (01) ==
PROVIDERS: PCP Family Medicine; Referring Provider Family Medicine; Visit Provider Family Medicine
DX: E04.1 Nontoxic single thyroid nodule (principal)
CPT/HCPCS: 36415; 80053; 84432; 84439; 84443; 84445; 86376; 86800

== ENCOUNTER → 2022-08-31 | Outpatient (CLI) | payer OTHER, SELFPAY ==
--- NOTE | 2022-08-31 13:27 | US_ITS ---
STUDY: THYROID ULTRASOUND REASON FOR EXAM: Female, 37 years old. Palpable nodule TECHNIQUE: Ultrasound evaluation of the thyroid was performed with real-time and static barbosa-scale imaging. COMPARISON: None. FINDINGS: RIGHT LOBE: The right lobe of the thyroid gland measures 5.0 x 1.9 x 1.6 cm. There is a homogeneous echotexture. There are no demonstrated solid, cystic or complex lesions. LEFT LOBE: The left lobe of the thyroid gland measures 4.7 x 1.6 x 1.4 cm. There is a homogeneous echotexture. There are no demonstrated solid, cystic or complex lesions. ISTHMUS: The isthmus measures 2 mm. There is an isthmus cyst measuring 1.5 x 1.3 x 0.9 cm The regional lymph nodes are normal. US/Thyroid IMPRESSION: 1.5 cm cystic nodule within the isthmus otherwise unremarkable thyroid ultrasound. No specific follow-up needed Electronically Signed: Lopez Hernández MD at 10:01 EST ,
== END | disposition home or self-care (01) ==
LOC: US 13:26
PROVIDERS: PCP Family Medicine; Referring Provider Family Medicine; Visit Provider Family Medicine
DX: E04.1 Nontoxic single thyroid nodule (principal)
CPT/HCPCS: 76536

== ENCOUNTER 2023-01-09 16:00 | Outpatient (RCR) | payer OTHER, SELFPAY ==
--- NOTE | 2022-12-25 10:29 | HP.PTEVAL_ITS ---
Patient's Visit Information BRAXTON OKEEFE is a 37 year old F referred to Physical Therapy by Dr. Elie Ba MD with a diagnosis of s/p R hip labral repair with capsulotomy on November 26, 2022. Date of Evaluation: 12/12/22 Physical Therapist: KINJAL Burden - Visit Plan Frequency: 2x /Week Duration: 3 Months Plan: 2X/ week for 12 weeks for R hip AROM, hip strength, functional activities, gait training, stair negotiation, return to running activities with HEP and modalities for pain control. HEP: single knee fall out, Glut squeezes, QS, SKC, prone quad stretches, HS stretches, - Subjective Pt had R arthroscopic labral repair with capsulotomy November 26, 2022. She is walking with 2 crutches with 50% WB. She is back at school and doing ok. She goes to full WB on the per the Dr as long as she has no pain. She is going stairs: use the railing going up with the L. She is sleeping good. She has no pain but some aching when she goes to lay down at night on her back. She has been laying on her stomach a little bit. 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 They said she is borderline hip displasia. - Pain R hip pain Pain Intensity (Out of 10): 1 L hip pain Pain Intensity (Out of 10): 2 - Objective Gait: Walks with 2 crutches with 50% WB on the R LE. LE MMT: R hip strength was not tested due to surgical procedure. Hip AROM: R hip flex 120 and hip ext 0 degrees and ABD 20 degrees ER 21 IR 30. L hip flexion 130 degrees and ABD 26 degrees ER 39 IR 32. Pt has good quad set and tolerance to hip ROM exercises - Balance/Special Test Scores Lower Extremity Functional Score: 36 - Goals Goal 1:: I HEP Goal Time Frame: 8-12 Weeks Goal 2:: Increase R hip AROM to 149 degrees flexion, 20 degrees ext, 45 degrees IR/ER with no pain at end range Goal Time Frame: 8-12 Weeks Goal 3:: Increase R hip strength Goal Time Frame: 8-12 Weeks - Rehabilitation Potential Rehabilitation Potential: Good - Anticipated Interventions Patient/Client Instruction: Educate patient on: Condition, Plan of Care For the Purpose of:: To decrease pain, To increase ROM, To improve nutrient delivery to tissue, To increase oxygenation perfusion, To improve muscle performance and motor function, To improve ability to perform ADL's, To increase tolerance to activity/condition/position, To decrease level of supervision to perform tasks, To improve ability of physical actions for home/community/work/leisure, To improve gait and locomotor functions, To improve health of tissue, To decrease soft tissue restriction, To increase flexibili ty/ROM, To improve endurance, To improve balance, To improve safety with gait Therapeutic Exercise to Include: Strength training, Endurance training, Balance training, Postural training, Flexibilty training, Gait and locomotor training, Neuromotor development, Passive ROM, Active ROM For the Purpose of:: To decrease pain, To increase ROM, To improve nutrient delivery to tissue, To increase oxygenation perfusion, To improve muscle performance and motor function, To improve ability to perform ADL's, To increase tolerance to activity/condition/position, To improve performance and independence with ADL's, To decrease level of supervision to perform tasks, To improve ability of physical actions for home/community/work/leisure, To improve gait and locomotor functions, To improve health of tissue, To decrease soft tissue restriction, To increase flexibility/ROM, To improve endurance, To improve balance, To improve safety with gait Functional Training to Include: Gait training For the Purpose of:: To improve gait and locomotor functions, To improve safety with gait Manual Therapy Techniques to Include: Passive ROM, Soft tissue mobilization For the Purpose of:: To decrease swelling/inflammation, To increase ROM, To improve nutrient delivery to tissue, To improve muscle performance and motor function Thank you for the opportunity to evaluate your patient. For Medicare and Medicare HMO plans, please review the plan of care and approve it. It will need to be FAXED BACK to us at [phone] for Medicare purposes. For Medicare only, by signing this I certify the plan of care. Please let me know if there are questions or concerns regarding this plan of care. Physician Signature: Date:
--- NOTE | 2023-03-14 10:59 | HP.PT.NRP ---
Patient Information Patient Information: BRAXTON OKEEFE was seen in my office for initial evaluation on 12/12/22. The following Plan of Care was established for this patient: POC Established Initial Frequency: 2x /Week Initial Duration: 3 Months Anticipated Interventions Patient/Client Instruction: Educate patient on: Condition and Plan of Care For the Purpose of:: To decrease pain, To increase ROM, To improve nutrient delivery to tissue, To increase oxygenation perfusion, To improve muscle performance and motor function, To improve ability to perform ADL's, To increase tolerance to activity/condition/position, To decrease level of supervision to perform tasks, To improve ability of physical actions for home/community/work/leisure, To improve gait and locomotor functions, To improve health of tissue, To decrease soft tissue restriction, To increase flexibility/ROM, To improve endurance, To improve balance and To improve safety with gait Therapeutic Exercise to Include: Strength training, Endurance training, Balance training, Postural training, Flexibilty training, Gait and locomotor training, Neuromotor development, Passive ROM and Active ROM For the Purpose of:: To decrease pain, To increase ROM, To improve nutrient delivery to tissue, To increase oxygenation perfusion, To improve muscle performance and motor function, To improve ability to perform ADL's, To increase tolerance to activity/condition/position, To improve performance and independence with ADL's, To decrease level of supervision to perform tasks, To improve ability of physical actions for home/community/work/leisure, To improve gait and locomotor functions, To improve health of tissue, To decrease soft tissue restriction, To increase flexibility/ROM, To improve endurance, To improve balance and To improve safety with gait Functional Training to Include: Gait training For the Purpose of:: To improve gait and locomotor functions and To improve safety with gait Manual Therapy Techniques to Include: Passive ROM and Soft tissue mobilization For the Purpose of:: To decrease swelling/inflammation, To increase ROM, To improve nutrient delivery to tissue and To improve muscle performance and motor function Last Seen Last Seen: This patient was last seen in our office 01/09/23. Pertinent comments regarding their Physical therapy will appear below: TED PT. Pt is doing well. She will be having other him done later this year. At this point I will be discontinuing this patient from physical therapy. I would be happy to see this patient again in the future if found appropriate by the physician. Thank you! Radha Hodges, MPT Balance/Gait/Functional tests Balance/Special Test Scores Lower Extremity Functional Score: 36
== END 2023-01-09 19:00 | disposition home or self-care (01) ==
LOC: PT 16:00
PROVIDERS: PCP Family Medicine; Referring Provider Orthopaedic Surgery Sports Medicine; Visit Provider Orthopaedic Surgery Sports Medicine
DX: M24.151 Other articular cartilage disorders, right hip (principal); M25.851 Other specified joint disorders, right hip
CPT/HCPCS: 97110; 97161